=== PATIENT | male | born 2005 | race Caucasian/White ===

== ENCOUNTER 2024-02-22 19:48 | Emergency (ER) | payer BC, SELFPAY ==
[2024-02-22 19:51] VITALS: BP 127/78
[2024-02-22 21:34] VITALS: BMI 31.0
[2024-02-22 21:35] VITALS: BP 123/67
--- NOTE | 2024-02-22 22:23 | ED.GENMED ---
History of Present Illness
General
Chief Complaint: Male Genito-Urinary Symptoms
Source: patient
Exam Limitations: none
Time Seen by Provider: 02/22/24 22:07
History of Present Illness
History of Present Illness:
This is a 18 year old male that comes in with c/o left testicular pain. States that this started about 4 days ago. States that it was on and off but felt it was more frequency recently. Denies any swelling. Denies any fever, chills, abd pain,
nausea, vomiting, diarrhea, headache, dizziness, urinary burning. .
Past History
Past History
ED Past Medical History: None; Negative Asthma, HTN, Hypercholesterolemia or NIDDM
ED Past Surgical History: None
Social History
Tobacco: Non-smoker
Alcohol: Occasional
Personal: Single
Living: other (College otherwise with mom and dad)
Review of Systems
Review of Systems
All Other Systems: ROS reviewed and negative except as documented in HPI and ROS
Constitutional: Reports no symptoms; Denies fever or chills
EENT: Reports no symptoms
Respiratory: Reports no symptoms; Denies cough or trouble breathing
Cardiac: Reports no symptoms; Denies chest pain
ABD/GI: Reports no symptoms; Denies abdominal pain, nausea, vomiting or diarrhea
: Reports other (Left testicular pain)
Musculoskeletal: Reports no symptoms
Skin: Reports no symptoms
Neurological: Reports no symptoms; Denies dizzy or headache
Psychiatric: Reports no symptoms
Phy Exam
General Physical Exam
General Presentation: well appearing and no apparent distress
General age: appears stated age
General Skin: warm and dry
General Habitus: normal
General Mental: alert
General Hydration: appears well hydrated
ENT Exam
ENT Exam: TM's normal, pharynx normal and neck supple
Eye Exam
Eye Exam: EOMI
Cardiovascular Exam
Cardiovascular Exam: regular rate/rhythm, no edema, no murmur and normal peripheral pulses
Pulmonary Exam
Pulmonary Exam: lungs clear, no respiratory distress, no rales, chest non tender, no crackles, no rhonchi, no wheezing and no cough
Gastrointestinal Exam
Gastrointestinal Exam: normal bowel sounds, non tender, soft, no organomegaly, no pulsatile mass and non distended
Genitourinary Exam Male
Exam Male: circumcised, no discharge, normal external genitalia, no evidence of trauma, no lesions, no testicular swelling and no testicular tenderness
Musculoskeletal Exam
Musculoskeletal Exam: full ROM and no edema
Skin Exam
Skin Exam: normal color, warm/dry, no rash and no petechia
Psychiatric Exam
Psychiatric Exam: normal mood/affect
Course
Orders/Labs/Results
Orders:
Orders
02/22/24 19:52
Scrotum US [US Scrotum] Urgent
Comment:
Reason For Exam: testicular pain
Vital Signs
Initial and Last Documented VS:
Initial Vital Signs
Temp Pulse Resp BP Pulse Ox
98.0 F 75 18 127/78 98
02/22/24 19:51 02/22/24 19:51 02/22/24 19:51 02/22/24 19:51 02/22/24 19:51
Last Documented Vital Signs
Temp Pulse Resp BP Pulse Ox
98.0 F 62 18 123/67 98
02/22/24 19:51 02/22/24 21:35 02/22/24 21:35 02/22/24 21:35 02/22/24 19:51
MDM/Problems Addressed
Differential Diagnosis Includes:
Testicular torsion. Testicular pain due to Lunging.
MDM/Problems Addressed:
This is a 18 year old male that comes in with c/o left testicular pain. States that this started 4 days ago and has continued to become more frequent.
Will get Ultrasound
Back into see patient. Explained that his Ultrasound is normal. Patient encouraged to hold off on lunging until his pain has stopped. Will have patient use Tylenol and Ibuprofen for pain. Return with any concern.
Chronic conditions affecting care:
NA
Acute Exacerbation and/or Progression of Chronic Illness:
NA
*Radiology
Radiology exam reviewed: radiology read reviewed (US-Unremarkable scrotal ultrasound)
*Pulse Oximetry
Patient hypoxic: no
*EKG
Interpreted by ED Provider?: NA
Rate: EKG- N/A
*Cap And Stud Machine Operator Interpretation
Rate: Cap And Stud Machine Operator- N/A
*Critical Care Note
Total Time (30-74mins, 75-104mins- exclusive of procedures): Not Applicable
ED Attending Note
-
Portions of this chart may have been created with voice recognition software.� Occasional wrong word or��sound alike� substitutions may have occurred due to the inherent limitations of voice recognition software.
Discharge Plan
Departure
Patient Disposition: Home (Routine Discharge)
Date of Disposition: 02/22/24
Time of Disposition: 22:31
Patient with high blood pressure during this ER visit?: No
Condition: Good
Covid-19: Not Applicable
Discharge Problem:
Left testicular pain
Prescriptions:
No Action
No Current Medications
0
Referrals:
Tunde Almaguer MD [Family Provider] - Follow up in 2-3 days
Activity Restrictions/Additional Instructions:
As discussed, your Ultrasound is normal. You may use Tylenol or Ibuprofen for pain. Follow up with the [facility] for further evaluation. IF your discomfort continues you will need to see a Urologist. Please stop the Lunging until the discomfort
is gone. Try to stay away also from Doing Squats. IF YOU HAVE INCREASED OR CHANGING PAIN, OR YOU HAVE ANY OTHER CONCERNS PLEASE RETURN TO THE EMERGENCY ROOM.
Interventions
Interventions:
*Risk Screen - Suicide Last Done: 02/22/24 21:40
*General Assessment Last Done: 02/22/24 21:38
*Neglect/Abuse Screening Last Done: 02/22/24 21:38
ED- Fall Risk Assessment Last Done: 02/22/24 21:41
*ED COVID-19 Vaccine History Last Done: 02/22/24 21:38
ED-Male Genitourinary Assessment Last Done: 02/22/24 21:41
Discharge Date and Time
Print Language: [id number]
== END 2024-02-22 22:43 | disposition home or self-care (01) ==
LOC: EMR 19:48
PROVIDERS: EMERGENCY PHYSICIAN Emergency Medicine; FAMILY PHYSICIAN Pediatrics
DX: N50.812 Left testicular pain (principal)
CPT/HCPCS: 99284; 76870; 93976